=== PATIENT | female | born 1990 | race American Indian/Alaskan Native ===

== ENCOUNTER 2021-08-06 19:17 | Emergency (ER) | payer MEDICAID ==
[2021-08-06] MEDS ORDERED: LORazepam 2 MG/ML VIAL IV PRN (19:38)
[2021-08-06] MEDS ORDERED: LORazepam 2 MG TAB PO PRN ×2 (19:38)
[2021-08-06] MEDS ORDERED: SODIUM CHLORIDE 0.9% 1000 ML 1,000 ML IV ONE (19:38)
[2021-08-06 20:01] LABS: Basophils # (Auto) 0.1 K/mm3 (0.0-0.1); Basophils % (Auto) 0.8 % (0.0-1.8); Eosinophils # (Auto) 0.1 K/mm3 (0.0-0.4); Eosinophils % (Auto) 1.2 % (0.0-4.3); Hematocrit 41.2 % (30.3-42.9); Hemoglobin 13.1 gm/dl (10.1-14.3); Lymphocytes # (Auto) 2.5 K/mm3 (1.2-5.4); Mean Corpuscular HGB Conc 32 % (30-34); Mean Corpuscular Volume 83 fl (79-97); Monocytes # (Auto) 0.8 K/mm3 (0.0-0.8); Monocytes % (Auto) 7.5 % (0.0-7.3); Platelet Count 264 K/mm3 (140-440); Red Blood Count 4.99 M/mm3 (3.65-5.03); Red Cell Distribution Width 14.3 % (13.2-15.2)
[2021-08-06 20:27] LABS: Alanine Aminotransferase 31 units/L (7-56); Albumin 4.4 g/dL (3.9-5); BUN/Creatinine Ratio 11; Blood Urea Nitrogen 8 mg/dL (7-17); Hemolysis Index 6
--- NOTE | 2021-08-06 22:34 | Emergency Department Report ---
ED General Adult HPI - General Chief complaint: Medical Clearance Stated complaint: MEDICAL CLEARANCE Time Seen by Provider: 08/06/21 19:33 Source: patient Mode of arrival: Ambulatory Limitations: No Limitations - History of Present Illness Initial comments: Patient is a 31-year-old F Hungarian female who has a past medical history of chronic recurrent osteomyelitis syndrome. Patient recently had significant rash on her pelvic region secondary to likely leave fungal infection. Patient states the rash is gone but she still has a sensation of burning after she has a shower. She has been using Vaseline which does soothe the burning sensation. Tonight the patient got out of the shower and started having pain radiating up her entire back as well as radiating down to her legs. Patient states is burning pain with itching. Patient denies any fevers chills cough cold congestion. - Related Data Previous Rx's Medication Instructions Recorded Last Taken Type Dexamethasone [Decadron] 6 mg PO DAILY #5 tablet 08/06/21 Unknown Rx Triamcinolone Acetonide 1 applic TP BID #60 ml 08/06/21 Unknown Rx [Triamcinolone 0.1% LOTION] Allergies Allergy/AdvReac Type Severity Reaction Status Date / Time No Known Allergies Allergy Verified 08/06/21 20:33 ED Review of Systems ROS: Stated complaint: MEDICAL CLEARANCE Other details as noted in HPI Comment: All other systems reviewed and negative ED Past Medical Hx - Past Medical History Previous Medical History?: No - Surgical History Past Surgical History?: No - Medications Home Medications: Home Medications Medication Instructions Recorded Confirmed Last Taken Type Dexamethasone [Decadron] 6 mg PO DAILY #5 tablet 08/06/21 Unknown Rx Triamcinolone Acetonide 1 applic TP BID #60 ml 08/06/21 Unknown Rx [Triamcinolone 0.1% LOTION] ED Physical Exam - General Limitations: No Limitations General appearance: alert, in no apparent distress - Head Head exam: Present: atraumatic, normocephalic - Eye Eye exam: Present: normal appearance, PERRL, EOMI - ENT ENT exam: Present: mucous membranes moist - Neck Neck exam: Present: normal inspection - Respiratory Respiratory exam: Present: normal lung sounds bilaterally. Absent: respiratory distress, wheezes, rales, rhonchi - Cardiovascular Cardiovascular Exam: Present: regular rate, normal rhythm, normal heart sounds. Absent: systolic murmur, diastolic murmur, rubs, gallop - GI/Abdominal GI/Abdominal exam: Present: soft, normal bowel sounds. Absent: distended, tenderness, guarding, rebound - Extremities Exam Extremities exam: Present: normal inspection - Back Exam Back exam: Present: normal inspection - Neurological Exam Neurological exam: Present: alert, oriented X3 - Psychiatric Psychiatric exam: Present: normal affect, normal mood - Skin Skin exam: Present: warm, dry, intact, normal color, other (Patient's skin on her bilateral buttock and lower back is very dry and scaly. No open sores or lesions. Do not see any evidence of any rash that appears to be fungal in nature at this time). Absent: rash ED Course Vital Signs 08/06/21 08/06/21 08/06/21 17:31 19:23 20:45 Temperature 98.1 F Pulse Rate 86 Respiratory 18 18 Rate Blood Pressure 126/74 140/100 O2 Sat by Pulse 100 98 98 Oximetry 08/06/21 21:03 Temperature Pulse Rate Respiratory Rate Blood Pressure 126/74 O2 Sat by Pulse 96 Oximetry ED Medical Decision Making - Lab Data Result diagrams: 08/06/21 19:47 08/06/21 19:47 Lab Results 08/06/21 08/06/21 08/06/21 Range/Units 19:47 19:47 19:47 WBC 10.5 (4.5-11.0) K/mm3 RBC 4.99 (3.65-5.03) M/mm3 Hgb 13.1 (10.1-14.3) gm/dl Hct 41.2 (30.3-42.9) % MCV 83 (79-97) fl MCH 26 L (28-32) pg MCHC 32 (30-34) % RDW 14.3 (13.2-15.2) % Plt Count 264 (140-440) K/mm3 Lymph % (Auto) 24.0 (13.4-35.0) % [place] % (Auto) 7.5 H (0.0-7.3) % Eos % (Auto) 1.2 (0.0-4.3) % Baso % (Auto) 0.8 (0.0-1.8) % Lymph # (Auto) 2.5 (1.2-5.4) K/mm3 [place] # (Auto) 0.8 (0.0-0.8) K/mm3 Eos # (Auto) 0.1 (0.0-0.4) K/mm3 Baso # (Auto) 0.1 (0.0-0.1) K/mm3 Seg Neutrophils % 66.5 (40.0-70.0) % Seg Neutrophils # 7.0 (1.8-7.7) K/mm3 Sodium (137-145) mmol/L Potassium (3.6-5.0) mmol/L Chloride (98-107) mmol/L Carbon Dioxide (22-30) mmol/L Anion Gap mmol/L BUN (7-17) mg/dL Creatinine (0.6-1.2) mg/dL Estimated GFR ml/min BUN/Creatinine Ratio % Glucose (65-100) mg/dL Calcium (8.4-10.2) mg/dL Total Bilirubin (0.1-1.2) mg/dL AST (5-40) units/L ALT (7-56) units/L Alkaline Phosphatase (35-129) units/L Total Protein (6.3-8.2) g/dL Albumin (3.9-5) g/dL Albumin/Globulin Ratio % Salicylates < 0.3 L (2.8-20.0) mg/dL Acetaminophen 5.0 L (10.0-30.0) ug/mL Plasma/Serum Alcohol (0-0.07) % 08/06/21 08/06/21 Range/Units 19:47 19:47 WBC (4.5-11.0) K/mm3 RBC (3.65-5.03) M/mm3 Hgb (10.1-14.3) gm/dl Hct (30.3-42.9) % MCV (79-97) fl MCH (28-32) pg MCHC (30-34) % RDW (13.2-15.2) % Plt Count (140-440) K/mm3 Lymph % (Auto) (13.4-35.0) % [place] % (Auto) (0.0-7.3) % Eos % (Auto) (0.0-4.3) % Baso % (Auto) (0.0-1.8) % Lymph # (Auto) (1.2-5.4) K/mm3 [place] # (Auto) (0.0-0.8) K/mm3 Eos # (Auto) (0.0-0.4) K/mm3 Baso # (Auto) (0.0-0.1) K/mm3 Seg Neutrophils % (40.0-70.0) % Seg Neutrophils # (1.8-7.7) K/mm3 Sodium 139 (137-145) mmol/L Potassium 4.2 (3.6-5.0) mmol/L Chloride 104.4 (98-107) mmol/L Carbon Dioxide 25 (22-30) mmol/L Anion Gap 14 mmol/L BUN 8 (7-17) mg/dL Creatinine 0.7 (0.6-1.2) mg/dL Estimated GFR > 60 ml/min BUN/Creatinine Ratio 11 % Glucose 132 H (65-100) mg/dL Calcium 10.0 (8.4-10.2) mg/dL Total Bilirubin 0.20 (0.1-1.2) mg/dL AST 31 (5-40) units/L ALT 31 (7-56) units/L Alkaline Phosphatase 110 (35-129) units/L Total Protein 7.4 (6.3-8.2) g/dL Albumin 4.4 (3.9-5) g/dL Albumin/Globulin Ratio 1.5 % Salicylates (2.8-20.0) mg/dL Acetaminophen (10.0-30.0) ug/mL Plasma/Serum Alcohol < 0.01 (0-0.07) % - Medical Decision Making Patient is a 31-year-old F Hungarian female who is presenting with severe pain in her back and legs. Patient is believing that this pain may have been secondary to recent fungal infection she had in her groin. Although her back does appear somewhat dry and scaly and does not appear as though rashes severe enough to cause severe pain. Patient likely with a flareup of her chronic recurrent osteomyelitis syndrome. Patient did receive pain management which did help with her pain and steroids. Patient is feeling improved and will be discharged home. Critical care attestation.: If time is entered above; I have spent that time in minutes in the direct care of this critically ill patient, excluding procedure time. ED Disposition Clinical Impression: Autoimmune disorder, Chronic pain Disposition: 01 HOME / SELF CARE / HOMELESS Is pt being admited?: No Does the pt Need Aspirin: No Condition: Stable Instructions: Chronic Pain, Adult Time of Disposition: 22:37
[2021-08-06 22:46] LABS: Amphetamine Screen,Urine PRESUMPTIVE NEGATIVE; Benzodiazepines Screen,Urine PRESUMPTIVE NEGATIVE; Cannabinoid Screen,Urine PRESUMPTIVE NEGATIVE; Cocaine Screen,Urine PRESUMPTIVE NEGATIVE; Methadone Screen,Urine PRESUMPTIVE NEGATIVE; Opiate Screen,Urine PRESUMPTIVE NEGATIVE
--- NOTE | 2021-08-06 22:52 | Emergency Department Report ---
ED Medical Clearance HPI - General Chief complaint: Medical Clearance Stated complaint: MEDICAL CLEARANCE Time Seen by Provider: 08/06/21 19:33 Source: patient Mode of arrival: Ambulatory - History of Present Illness Initial comments: Patient is a 31-year-old F Italian female who is presenting for medical clearance to go to a detox program. Patient states that she has a history of heavy alcohol abuse. States in the days she drinks either 2 bottles of wine or a half of 1/5 of liquor. Patient is states she would like to stop drinking. States her last drink was last night. Denies any visual hallucinations but states she does have some tremors. No history of withdrawal seizures. Mild nausea but no vomiting diarrhea. No history of any signs or symptoms of COVID- 19 MD Complaint: medical clearance request Alledged Intoxication: Yes Treatments Prior to Arrival: none Home medications: Previous Rx's Medication Instructions Recorded Last Taken Type Dexamethasone [Decadron] 6 mg PO DAILY #5 tablet 08/06/21 Unknown Rx Triamcinolone Acetonide 1 applic TP BID #60 ml 08/06/21 Unknown Rx [Triamcinolone 0.1% LOTION] Sertraline HCl [Zoloft] 100 mg PO DAILY #30 tablet 08/07/21 Unknown Rx Allergies/Adverse reactions: Allergies Allergy/AdvReac Type Severity Reaction Status Date / Time No Known Allergies Allergy Verified 08/06/21 20:33 ED Review of Systems ROS: Stated complaint: MEDICAL CLEARANCE Other details as noted in HPI Comment: All other systems reviewed and negative ED Past Medical Hx - Past Medical History Previous Medical History?: No - Surgical History Past Surgical History?: No - Medications Home Medications: Home Medications Medication Instructions Recorded Confirmed Last Taken Type Dexamethasone [Decadron] 6 mg PO DAILY #5 tablet 08/06/21 Unknown Rx Triamcinolone Acetonide 1 applic TP BID #60 ml 08/06/21 Unknown Rx [Triamcinolone 0.1% LOTION] Sertraline HCl [Zoloft] 100 mg PO DAILY #30 tablet 08/07/21 Unknown Rx ED Physical Exam - General Limitations: No Limitations General appearance: alert, in no apparent distress, other (tearful) - Head Head exam: Present: atraumatic, normocephalic - Eye Eye exam: Present: normal appearance - ENT ENT exam: Present: mucous membranes moist - Neck Neck exam: Present: normal inspection - Respiratory Respiratory exam: Present: normal lung sounds bilaterally. Absent: respiratory distress, wheezes, rales, rhonchi - Cardiovascular Cardiovascular Exam: Present: regular rate, normal rhythm, normal heart sounds. Absent: systolic murmur, diastolic murmur, rubs, gallop - GI/Abdominal GI/Abdominal exam: Present: soft, normal bowel sounds. Absent: distended, tenderness, guarding - Extremities Exam Extremities exam: Present: normal inspection - Back Exam Back exam: Present: normal inspection - Neurological Exam Neurological exam: Present: alert, oriented X3 - Psychiatric Psychiatric exam: Present: normal affect, normal mood - Skin Skin exam: Present: warm, dry, intact, normal color. Absent: rash ED Course Vital Signs 08/06/21 08/06/21 08/06/21 17:31 19:23 20:45 Temperature 98.1 F Pulse Rate 86 Respiratory 18 18 Rate Blood Pressure 126/74 140/100 Blood Pressure [Left] O2 Sat by Pulse 100 98 98 Oximetry 08/06/21 08/06/21 08/06/21 21:02 21:03 21:15 Temperature Pulse Rate Respiratory Rate Blood Pressure 126/74 126/74 132/86 Blood Pressure [Left] O2 Sat by Pulse 97 96 99 Oximetry 08/06/21 08/06/21 08/06/21 21:30 22:00 23:30 Temperature Pulse Rate Respiratory 20 Rate Blood Pressure 142/80 120/73 Blood Pressure [Left] O2 Sat by Pulse 98 98 Oximetry 08/06/21 08/07/21 08/07/21 23:31 00:00 00:30 Temperature Pulse Rate Respiratory Rate Blood Pressure 138/87 144/72 145/82 Blood Pressure [Left] O2 Sat by Pulse 98 98 98 Oximetry 08/07/21 08/07/21 08/07/21 00:45 01:00 01:15 Temperature Pulse Rate Respiratory Rate Blood Pressure 144/72 129/79 145/82 Blood Pressure [Left] O2 Sat by Pulse 97 98 97 Oximetry 08/07/21 08/07/21 08/07/21 01:30 02:00 02:15 Temperature Pulse Rate Respiratory Rate Blood Pressure 132/70 125/81 129/79 Blood Pressure [Left] O2 Sat by Pulse 96 98 98 Oximetry 08/07/21 08/07/21 08/07/21 02:30 03:01 03:31 Temperature Pulse Rate Respiratory Rate Blood Pressure 120/67 114/71 128/81 Blood Pressure [Left] O2 Sat by Pulse 97 97 97 Oximetry 08/07/21 08/07/21 05:44 10:24 Temperature 98.1 F 98.4 F Pulse Rate 86 74 Respiratory 20 18 Rate Blood Pressure Blood Pressure 128/81 142/84 [Left] O2 Sat by Pulse 97 99 Oximetry - Reevaluation(s) Reevaluation #1: 08/06/21 22:52 Patient is medically cleared at this time. Patient stable to be seen by our mental health assessment team who can assist us with finding appropriate alcohol treatment for this patient. CIWA protocol has been ordered. Patient is not meeting criteria at this time to receive any doses of Ativan Reevaluation #2: 08/08/21 03:20 Patient Name: TARIK DANIEL Date of : 89 Patient Status: Emergency Emergency Provider: CRISTIANO MONDRAGON Date: 08/07/21 09:34 Initialization Date: 08/07/21 09:34 History of Present Illness - Reason for Consult Consult date: 08/07/21 Reason for consult: ETOH dependence - History of Present Psychiatric Illness Tarik Daniel is a 31y/o female patient whom I evaluated today. She is calm, and cooperative. She is polite. The patient says she has a drinking problem and states she also suffers from depression. She says she had been drinking heavily and tried to drive her car with her 4 month old in the car. She says she blacked out. The patient says her boyfriend got the baby and told her she needed to seek help. The patient is tearful. She is regretful. She says "I could have hurt my baby, myself or somebody else." She says "I know I need to stop drinking but where do I begin." She says she was on zoloft for PPD but stopped taking it because she thought she was fine. The patient says "I know I need it now. I also need a rehab." The patient says she drinks 2 bottles of wine, also 1/2 5th of tequila or vodka daily. She denies any other drug use. The patient says she had a hard . We talked about her goals. She is optimistic about her future and says she wants to start back working. The patient denies SI/HI. She says "I'm not going to do anything to myself or anyone ." She also denies hallucinations of any kind. REVIEW OF SYSTEMS Constitutional: Negative for weight loss ENT: Negative for stridor Respiratory: Negative for cough or hemoptysis All other systems reviewed and are negative MENTAL STATUS EXAMINATION General Appearance and Behavior: Age appropriate, good hygiene, wearing appropriate clothes. calm, cooperative, polite Cooperation: cooperative Psychomotor Behavior: Psychomotor normal Mood: okay Affect and affective range: congruent with stated mood Thought Process: goal directed Thought Content: None Speech: Normal tone and pace Suicidal Ideation: Denies Homicidal Ideation: Denies Hallucinations: Denies Delusions: none elicited Impulse Control: Limited Insight and Judgment: Limited Memory: limited Attention: Attentive Orientation: alert and oriented Assessment and Plan (1) ETOH Dependence Treatment Plan Zoloft 100mg po daily Sitter: per primary Medical: per primary Disposition: Do not recommend acute psychiatric inpatient treatment. The patient understands to seek immediate assistance if SI/HI arise or any fear of endangerment. The patient to abstain from alcohol The willower to give the patient outpatient psych resources, including alcohol rehab and CBT She is to follow up with outpatient psych or primary in 7 to 14 days upon discharge Will sign off. Thanks Case staffed with Dr. Arechiga ED Medical Decision Making - Lab Data Result diagrams: 08/06/21 19:47 08/06/21 19:47 Lab Results 08/06/21 08/06/21 08/06/21 Range/Units 19:47 19:47 19:47 WBC 10.5 (4.5-11.0) K/mm3 RBC 4.99 (3.65-5.03) M/mm3 Hgb 13.1 (10.1-14.3) gm/dl Hct 41.2 (30.3-42.9) % MCV 83 (79-97) fl MCH 26 L (28-32) pg MCHC 32 (30-34) % RDW 14.3 (13.2-15.2) % Plt Count 264 (140-440) K/mm3 Lymph % (Auto) 24.0 (13.4-35.0) % [place] % (Auto) 7.5 H (0.0-7.3) % Eos % (Auto) 1.2 (0.0-4.3) % Baso % (Auto) 0.8 (0.0-1.8) % Lymph # (Auto) 2.5 (1.2-5.4) K/mm3 [place] # (Auto) 0.8 (0.0-0.8) K/mm3 Eos # (Auto) 0.1 (0.0-0.4) K/mm3 Baso # (Auto) 0.1 (0.0-0.1) K/mm3 Seg Neutrophils % 66.5 (40.0-70.0) % Seg Neutrophils # 7.0 (1.8-7.7) K/mm3 Sodium (137-145) mmol/L Potassium (3.6-5.0) mmol/L Chloride (98-107) mmol/L Carbon Dioxide (22-30) mmol/L Anion Gap mmol/L BUN (7-17) mg/dL Creatinine (0.6-1.2) mg/dL Estimated GFR ml/min BUN/Creatinine Ratio % Glucose (65-100) mg/dL Calcium (8.4-10.2) mg/dL Total Bilirubin (0.1-1.2) mg/dL AST (5-40) units/L ALT (7-56) units/L Alkaline Phosphatase (35-129) units/L Total Protein (6.3-8.2) g/dL Albumin (3.9-5) g/dL Albumin/Globulin Ratio % Salicylates < 0.3 L (2.8-20.0) mg/dL Urine Opiates Screen Urine Methadone Screen Acetaminophen 5.0 L (10.0-30.0) ug/mL Ur Barbiturates Screen Ur Phencyclidine Scrn Ur Amphetamines Screen U Benzodiazepines Scrn Urine Cocaine Screen U Marijuana (THC) Screen Drugs of Abuse Note Plasma/Serum Alcohol (0-0.07) % 08/06/21 08/06/21 08/06/21 Range/Units 19:47 19:47 22:30 WBC (4.5-11.0) K/mm3 RBC (3.65-5.03) M/mm3 Hgb (10.1-14.3) gm/dl Hct (30.3-42.9) % MCV (79-97) fl MCH (28-32) pg MCHC (30-34) % RDW (13.2-15.2) % Plt Count (140-440) K/mm3 Lymph % (Auto) (13.4-35.0) % [place] % (Auto) (0.0-7.3) % Eos % (Auto) (0.0-4.3) % Baso % (Auto) (0.0-1.8) % Lymph # (Auto) (1.2-5.4) K/mm3 [place] # (Auto) (0.0-0.8) K/mm3 Eos # (Auto) (0.0-0.4) K/mm3 Baso # (Auto) (0.0-0.1) K/mm3 Seg Neutrophils % (40.0-70.0) % Seg Neutrophils # (1.8-7.7) K/mm3 Sodium 139 (137-145) mmol/L Potassium 4.2 (3.6-5.0) mmol/L Chloride 104.4 (98-107) mmol/L Carbon Dioxide 25 (22-30) mmol/L Anion Gap 14 mmol/L BUN 8 (7-17) mg/dL Creatinine 0.7 (0.6-1.2) mg/dL Estimated GFR > 60 ml/min BUN/Creatinine Ratio 11 % Glucose 132 H (65-100) mg/dL Calcium 10.0 (8.4-10.2) mg/dL Total Bilirubin 0.20 (0.1-1.2) mg/dL AST 31 (5-40) units/L ALT 31 (7-56) units/L Alkaline Phosphatase 110 (35-129) units/L Total Protein 7.4 (6.3-8.2) g/dL Albumin 4.4 (3.9-5) g/dL Albumin/Globulin Ratio 1.5 % Salicylates (2.8-20.0) mg/dL Urine Opiates Screen Presumptive negative Urine Methadone Screen Presumptive negative Acetaminophen (10.0-30.0) ug/mL Ur Barbiturates Screen Presumptive negative Ur Phencyclidine Scrn Presumptive negative Ur Amphetamines Screen Presumptive negative U Benzodiazepines Scrn Presumptive negative Urine Cocaine Screen Presumptive negative U Marijuana (THC) Screen Presumptive negative Drugs of Abuse Note Disclamer Plasma/Serum Alcohol < 0.01 (0-0.07) % ED Disposition Clinical Impression: Alcohol dependence Disposition: 01 HOME / SELF CARE / HOMELESS Is pt being admited?: No Does the pt Need Aspirin: No Condition: Stable Additional Instructions: In case of an emergency, please contact the following numbers: [place] Crisis and Access Line: Number: Crisis Text Line: (Text START) Number: [phone] Suicide Prevention Line: Number: Emergency Number: 911 SUBSTANCE ABUSE PROGRAMS: [facility]: Location: [place], [place] [facility] Address: [address] [place] [address] [facility]: Address: [address] [place] [address] [facility]: Address: [address] [place] [address] [facility]: Address: [address] [place] [address] [facility] Address: [address] [place] [address]. Please contact above numbers to attempt placement into free based program. Medicaid Programs: [facility]: Address: [address] [place] [address] [facility]: Address: [address] [place] [address] OUTPATIENT MENTAL HEALTH RESOURCES [facility], [facility] Zaynab Khoury MD: [address] [place] [address] [place] [address] [facility]: [facility] [address] [place] [address] [place] [address] [phone] [facility]: [facility]: [address] [facility] [address] [place] [address] [place] [address] [place] [address] [facility]: Adam Alexander MD: [address] [facility] [address] [facility] [address] [facility]: [address] [place] [address] [phone] [place] CRISIS AND ACCESS LINE: Prescriptions: Dexamethasone [Decadron] 6 mg PO DAILY #5 tablet Triamcinolone Acetonide [Triamcinolone 0.1% LOTION] 1 applic TP BID #60 ml Sertraline HCl [Zoloft] 100 mg PO DAILY #30 tablet Referrals: PRIMARY CARE, [Primary Care Provider] - 3-5 Days
[2021-08-06 22:53] LABS: Bilirubin,Urine NEG (Negative); Blood,Urine NEG (Negative); Color,Urine Yellow (Yellow); Mucus,Urine 3+ /HPF; Urobilinogen,Urine < 2.0 mg/dL (<2.0)
[2021-08-06 22:55] LABS: HCG Qualitative,Urine Negative (Negative)
[2021-08-06] MEDS ORDERED: ACETAMINOPHEN 325 MG TAB PO ONE (23:08)
[2021-08-06] MEDS ORDERED: ONDANSETRON 4 MG ODT TAB PO ONE (23:30)
[2021-08-06] MEDS ORDERED: ONDANSETRON 4 MG/2 ML INJ ONE (23:31)
[2021-08-07] MEDS ORDERED: ONDANSETRON 4 MG/2 ML INJ IV ONE (03:43)
--- NOTE | 2021-08-07 09:40 | Consultation ---
History of Present Illness - Reason for Consult Consult date: 08/07/21 Reason for consult: ETOH dependence - History of Present Psychiatric Illness Linda Daniel is a 31y/o female patient whom I evaluated today. She is calm, and cooperative. She is polite. The patient says she has a drinking problem and states she also suffers from depression. She says she had been drinking heavily and tried to drive her car with her 4 month old in the car. She says she blacked out. The patient says her boyfriend got the baby and told her she needed to seek help. The patient is tearful. She is regretful. She says "I could have hurt my baby, myself or somebody else." She says "I know I need to stop drinking but where do I begin." She says she was on zoloft for PPD but stopped taking it because she thought she was fine. The patient says "I know I need it now. I also need a rehab." The patient says she drinks 2 bottles of wine, also 1/2 5th of tequila or vodka daily. She denies any other drug use. The patient says she had a hard . We talked about her goals. She is optimistic about her future and says she wants to start back working. The patient denies SI/HI. She says "I'm not going to do anything to myself or anyone." She also denies hallucinations of any kind. REVIEW OF SYSTEMS Constitutional: Negative for weight loss ENT: Negative for stridor Respiratory: Negative for cough or hemoptysis All other systems reviewed and are negative MENTAL STATUS EXAMINATION General Appearance and Behavior: Age appropriate, good hygiene, wearing appropriate clothes. calm, cooperative, polite Cooperation: cooperative Psychomotor Behavior: Psychomotor normal Mood: okay Affect and affective range: congruent with stated mood Thought Process: goal directed Thought Content: None Speech: Normal tone and pace Suicidal Ideation: Denies Homicidal Ideation: Denies Hallucinations: Denies Delusions: none elicited Impulse Control: Limited Insight and Judgment: Limited Memory: limited Attention: Attentive Orientation: alert and oriented Assessment and Plan (1) ETOH Dependence Treatment Plan Zoloft 100mg po daily Sitter: per primary Medical: per primary Disposition: Do not recommend acute psychiatric inpatient treatment. The patient understands to seek immediate assistance if SI/HI arise or any fear of endangerment. The patient to abstain from alcohol The cartridge belt puncher to give the patient outpatient psych resources, including alcohol rehab and CBT She is to follow up with outpatient psych or primary in 7 to 14 days upon discharge Will sign off. Thanks Case staffed with Dr. Howard Medications and Allergies Allergies Allergy/AdvReac Type Severity Reaction Status Date / Time No Known Allergies Allergy Verified 08/06/21 20:33 Home Medications Medication Instructions Recorded Confirmed Last Taken Type Dexamethasone [Decadron] 6 mg PO DAILY #5 tablet 08/06/21 Unknown Rx Triamcinolone Acetonide 1 applic TP BID #60 ml 08/06/21 Unknown Rx [Triamcinolone 0.1% LOTION] Sertraline HCl [Zoloft] 100 mg PO DAILY #30 tablet 08/07/21 Unknown Rx Active Meds: Active Medications Lorazepam (Lorazepam 2 Mg Tab) 2 mg PO Q1HR PRN PRN Reason: CIWA-Ar 8-15 Lorazepam (Lorazepam 2 Mg Tab) 4 mg PO Q1HR PRN PRN Reason: CIWA-Ar 16-25 Lorazepam (Lorazepam 2 Mg/Ml Vial) 4 mg IV Q15MIN PRN PRN Reason: CIWA-Ar >25 Mental Status Exam - Vital signs Last Vital Signs Temp 98.1 F 08/07/21 05:44 Pulse 86 08/07/21 05:44 Resp 20 08/07/21 05:44 BP 128/81 08/07/21 05:44 Pulse Ox 97 08/07/21 05:44 Results Result Diagrams: 08/06/21 19:47 08/06/21 19:47 Abnormal lab results 08/06/21 08/06/21 08/06/21 Range/Units 19:47 19:47 19:47 MCH 26 L (28-32) pg [place] % (Auto) 7.5 H (0.0-7.3) % Glucose (65-100) mg/dL Salicylates < 0.3 L (2.8-20.0) mg/dL Acetaminophen 5.0 L (10.0-30.0) ug/mL 08/06/21 Range/Units 19:47 MCH (28-32) pg [place] % (Auto) (0.0-7.3) % Glucose 132 H (65-100) mg/dL Salicylates (2.8-20.0) mg/dL Acetaminophen (10.0-30.0) ug/mL All other labs normal.
[2021-08-07] MEDS ORDERED: SERTRALINE 50 MG TAB PO SCH (10:00)
[2021-08-07 10:25] VITALS: BP 142/84
--- NOTE | 2021-08-07 11:03 | Event Note ---
Patient cleared by psychiatry team for discharge.
== END 2021-08-07 11:18 | disposition home or self-care (01) ==
LOC: ED 19:17
DX: F10.20 Alcohol dependence, uncomplicated (principal); Z20.822 Contact with and (suspected) exposure to COVID-19
CPT/HCPCS: 36415; 80053; 80307; 81001; 81025; 85025; 96361; 96374; 99284; J2405; J7030; U0003; 80320; Q0162; G0480; J2060